=== PATIENT | female | born 1970 | race Caucasian/White ===

== ENCOUNTER 2018-01-13 11:23 | Outpatient (REF) | payer BC, SELFPAY ==
[2018-01-13 22:05] LABS: Cholesterol 203 mg/dL (50-200); HDL Cholesterol 57 mg/dL (40-60); LDL CHOLESTEROL 139 mg/dL (<100); Triglyceride 51 mg/dL (30-150)
== END 2018-01-13 11:43 ==
LOC: NCHCN 11:23
PROVIDERS: PCP Family Medicine; Visit Provider Family Medicine
DX: Z00.00 Encounter for general adult medical examination without abnormal findings (principal); Z13.220 Encounter for screening for lipoid disorders
CPT/HCPCS: 80061; 83721

== ENCOUNTER 2019-10-31 14:18 | Outpatient (REF) | payer BC, SELFPAY | END 2019-10-31 14:38 | LOC: NCHCN 14:18 | PROVIDERS: PCP Family Medicine; Visit Provider Registered Nurse | DX: R35.0 Frequency of micturition (principal) | CPT/HCPCS: 87077; 87086; 87186 ==

== ENCOUNTER 2019-11-06 18:20 | Outpatient (REF) | payer BC, SELFPAY | END 2019-11-06 18:40 | LOC: NCHCN 18:20 | PROVIDERS: PCP Family Medicine; Visit Provider Nurse Practitioner Family | DX: R35.0 Frequency of micturition (principal) | CPT/HCPCS: 87077; 87086; 87186 ==

== ENCOUNTER 2020-10-08 14:39 | Outpatient (REF) | payer BC, SELFPAY ==
[2020-10-08 15:17] LABS: HCT 37.3 % (36.0-46.0); HGB 12.4 g/dL (11.2-15.7); MCH 31.5 pg (27.0-33.0); MCHC 33.2 % (32.0-36.0); MCV 94.7 fL (80-95); MPV 11.3 fL (8.0-11.0); Platelet Count 345 10^3/uL (130-400); RBC 3.94 10^6/uL (3.93-5.22); RDW 13.8 % (11.7-14.6); RDW-SD 47.9 fL; WBC 6.73 10^3/uL (4.4-10.8)
[2020-10-08 15:25] LABS: Anion Gap 10.6 mmol/L (3-11); BUN 18 mg/dL (7-18); CO2 27.4 mmol/L (21.0-32.0); CREATININE 0.6 mg/dL (0.55-1.02); Calcium 8.9 mg/dL (8.5-10.1); Calculated LDL 161 mg/dL (<100); Chloride 103 mmol/L (98-107); Cholesterol 232 mg/dL (<200); Glucose 93 mg/dL (74-106); HDL Cholesterol 62 mg/dL (40-60); Potassium 3.6 mmol/L (3.5-5.1); Sodium 141 mmol/L (136-145); Triglyceride 47 mg/dL (<150)
[2020-10-08 15:42] LABS: Hemoglobin A1C 5.5 % (<5.7)
== END 2020-10-08 14:40 | disposition home or self-care (01) ==
LOC: NCHCN 14:39
PROVIDERS: PCP Family Medicine; Visit Provider Nurse Practitioner Family
DX: Z00.00 Encounter for general adult medical examination without abnormal findings (principal); Z13.1 Encounter for screening for diabetes mellitus; Z13.220 Encounter for screening for lipoid disorders; Z86.2 Personal history of diseases of the blood and blood-forming organs and certain disorders involving the immune mechanism
CPT/HCPCS: 80048; 80061; 85027; 83036

== ENCOUNTER 2020-11-27 20:55 | Outpatient (REF) | payer BC, SELFPAY ==
[2020-11-29 11:58] LABS: COVID-19 RT-PCR UVMMC Result Negative (Negative)
== END 2020-11-27 20:56 | disposition home or self-care (01) ==
LOC: NCHCN 20:55
PROVIDERS: PCP Family Medicine; Visit Provider Registered Nurse
DX: Z20.822 Contact with and (suspected) exposure to COVID-19 (principal); R11.10 Vomiting, unspecified
CPT/HCPCS: U0003

== ENCOUNTER 2021-02-24 17:43 | Outpatient (REF) | payer BC, SELFPAY ==
[2021-02-24 20:56] LABS: Abs Immature Grans 0.03 10^3/uL (0.0-0.06); Absolute Basophil Count 0.06 10^3/uL (0.0-0.2); Absolute Eosinophil Count 0.19 10^3/uL (0.0-0.7); Absolute Lymphocyte Count 2.79 10^3/uL (1.2-3.4); Absolute Neutrophil Count 3.28 10^3/uL (1.2-6.7); Basophils % 0.9; Eosinophils % 2.7; HCT 35.3 % (36.0-46.0); HGB 11.3 g/dL (11.2-15.7); Immature Grans % 0.4; Lymphocytes % 40.1; MCH 30.1 pg (27.0-33.0); MCV 94.1 fL (80-95); MPV 10.8 fL (8.0-11.0); Monocytes % 8.6; Neutrophils % 47.3; Nucleated RBC 0 %; Platelet Count 386 10^3/uL (130-400); RBC 3.75 10^6/uL (3.93-5.22); RDW 14.6 % (11.7-14.6); RDW-SD 50.7 fL; WBC 6.95 10^3/uL (4.4-10.8)
== END 2021-02-24 17:44 | disposition home or self-care (01) ==
LOC: NCHCN 17:43
PROVIDERS: PCP Family Medicine; Visit Provider Family Medicine
DX: J20.9 Acute bronchitis, unspecified (principal); Z86.2 Personal history of diseases of the blood and blood-forming organs and certain disorders involving the immune mechanism
CPT/HCPCS: 85025

== ENCOUNTER 2022-12-29 12:06 | Outpatient (REF) | payer BC, SELFPAY | END 2022-12-29 12:07 | disposition home or self-care (01) | LOC: NCHCN 12:06 | PROVIDERS: PCP Family Medicine; Visit Provider Physician Assistant | DX: N39.0 Urinary tract infection, site not specified (principal) | CPT/HCPCS: 87077; 87086; 87186 ==

== ENCOUNTER 2023-03-18 10:38 | Outpatient (REF) | payer BC, SELFPAY ==
[2023-03-18 14:27] LABS: Abs Immature Grans 0.06 10^3/uL (0.0-0.06); Absolute Eosinophil Count 0.65 10^3/uL (0.0-0.7); Absolute Lymphocyte Count 5.02 10^3/uL (1.2-3.4); Absolute Monocyte Count 1.07 10^3/uL (0.1-0.8); Basophils % 0.9; Eosinophils % 5.8; HCT 34.8 % (36.0-46.0); HGB 11.6 g/dL (11.2-15.7); Immature Grans % 0.5; Lymphocytes % 44.7; MCH 30.5 pg (27.0-33.0); MCHC 33.3 % (32.0-36.0); MCV 92 fL (80-95); MPV 10.8 fL (8.0-11.0); Monocytes % 9.5; Neutrophils % 38.6; Nucleated RBC 0.2 % (0.0-0.3); Platelet Count 319 10^3/uL (130-400); RDW-SD 50.5 fL; WBC 11.22 10^3/uL (4.4-10.8)
[2023-03-18 14:37] LABS: Absolute Neutrophil Count 4.33 10^3/uL (1.2-6.7)
[2023-03-18 14:43] LABS: Diff Comment Diff Reviewed; RBC Morphology Normal
[2023-03-18 14:47] LABS: ALT 22 U/L (14-59); AST 17 U/L (15-37); Albumin 3.7 g/dL (3.4-5.0); Alkaline Phosphatase 68 U/L (46-116); Anion Gap 6.4 mmol/L (3-11); BUN 18 mg/dL (7-18); Bilirubin, Total 0.8 mg/dL (0.2-1.0); CO2 31.6 mmol/L (21.0-32.0); CREATININE 0.7 mg/dL (0.55-1.02); Chloride 103 mmol/L (98-107); Glucose 92 mg/dL (74-106); Potassium 3.6 mmol/L (3.5-5.1); Sodium 141 mmol/L (136-145); Total Protein 7.3 g/dL (6.4-8.2)
== END 2023-03-18 10:39 | disposition home or self-care (01) ==
LOC: LBN 10:38
PROVIDERS: PCP Family Medicine; Visit Provider Psychiatry & Neurology Neurology
DX: M62.838 Other muscle spasm (principal)
CPT/HCPCS: 80053; 85025

== ENCOUNTER 2023-06-23 13:21 | Outpatient (REF) | payer BC, SELFPAY ==
[2023-06-23 14:42] LABS: Abs Immature Grans 0.01 10^3/uL (0.0-0.06); Absolute Basophil Count 0.04 10^3/uL (0.0-0.2); Absolute Eosinophil Count 0.14 10^3/uL (0.0-0.7); Absolute Lymphocyte Count 2.42 10^3/uL (1.2-3.4); Absolute Monocyte Count 0.56 10^3/uL (0.1-0.8); Absolute Neutrophil Count 2.35 10^3/uL (1.2-6.7); Basophils % 0.7 %; Eosinophils % 2.5 %; HCT 37.9 % (36.0-46.0); Immature Grans % 0.2 %; Lymphocytes % 43.8 %; MCH 30.7 pg (27.0-33.0); MCHC 34.3 % (32.0-36.0); MCV 89 fL (80-95); Monocytes % 10.1 %; Neutrophils % 42.7 %; Nucleated RBC 0.4 % (0.0-0.3); Platelet Count 323 10^3/uL (130-400); RBC 4.24 10^6/uL (3.93-5.22); RDW-SD 49.9 fL; WBC 5.52 10^3/uL (4.4-10.8)
[2023-06-23 15:06] LABS: ALT 26 U/L (14-59); AST 27 U/L (15-37); Albumin 3.9 g/dL (3.4-5.0); Alkaline Phosphatase 58 U/L (46-116); Anion Gap 7.7 mmol/L (3-11); BUN 23 mg/dL (7-18); Bilirubin, Total 0.4 mg/dL (0.2-1.0); CO2 32.3 mmol/L (21.0-32.0); CREATININE 0.7 mg/dL (0.55-1.02); Calcium 8.8 mg/dL (8.5-10.1); Chloride 100 mmol/L (98-107); Glucose 98 mg/dL (74-106); NT-proBNP 39 pg/mL (<300); Potassium 3.5 mmol/L (3.5-5.1); Sodium 140 mmol/L (136-145); Total Protein 7.5 g/dL (6.4-8.2)
[2023-06-23 15:21] LABS: Calculated LDL 92 mg/dL (<100); Cholesterol 162 mg/dL (<200); HDL Cholesterol 60 mg/dL (40-60); Triglyceride 53 mg/dL (<150)
== END 2023-06-23 13:22 | disposition home or self-care (01) ==
LOC: NCHCN 13:21
PROVIDERS: PCP Family Medicine; Visit Provider Family Medicine
DX: I10 Essential (primary) hypertension (principal)
CPT/HCPCS: 80053; 80061; 83880; 85025

== ENCOUNTER 2024-10-23 17:38 | Outpatient (REF) | payer BC, SELFPAY ==
[2024-10-23 20:33] LABS: HCT 32.3 % (36.0-46.0); HGB 11.0 g/dL (11.2-15.7); MCH 31.6 pg (27.0-33.0); MCHC 34.1 % (32.0-36.0); MCV 93 fL (80-95); MPV 11.0 fL (8.0-11.0); Platelet Count 280 10^3/uL (130-400); RBC 3.48 10^6/uL (3.93-5.22); RDW 12.9 % (11.7-14.6); RDW-SD 43.7 fL; WBC 4.59 10^3/uL (4.4-10.8)
[2024-10-23 20:53] LABS: TSH (W/Ref FT4) 1.51 uIU/mL (0.36-3.74)
== END 2024-10-23 17:39 | disposition home or self-care (01) ==
LOC: NCHCN 17:38
PROVIDERS: PCP Family Medicine; Visit Provider Family Medicine
DX: Z86.2 Personal history of diseases of the blood and blood-forming organs and certain disorders involving the immune mechanism (principal); R68.89 Other general symptoms and signs
CPT/HCPCS: 85027; 84443